=== PATIENT | female | born 1995 | race Hispanic/Latino ===

== ENCOUNTER 2021-01-05 12:18 | Emergency (ER) | payer OTHER, SELFPAY ==
[2021-01-05 12:56] VITALS: BP 128/73; PULSE 75; RESP 17; TEMP 36.7; O2SAT 100; BMI 28.3
--- NOTE | 2021-01-05 17:16 | ED_ITS ---
HPI - Wound/Laceration General Chief Complaint: Wound/Laceration Stated Complaint: cut on left arm, may need stitches Time Seen by Provider: 01/05/21 17:16 Source: patient Mode of arrival: Ambulatory Limitations: no limitations History of Present Illness HPI narrative: Patient had her Nexplanon removed earlier today. She states that the wound bled a little bit afterwards and seemed large she was unsure what to do so she came here. She states it did take some time for it to be removed. She denies any other medical issues. She does not have any other concerns. Related Data Home Medications Medication Instructions Recorded Confirmed No Known Home Medications 01/05/21 01/05/21 Allergies Allergy/AdvReac Type Severity Reaction Status Date / Time No Known Drug Allergies Allergy Verified 01/05/21 12:59 Review of Systems Review of Systems ROS Unobtainable: All systems reviewed & are unremarkable except as noted in HPI and below Patient History Social History Smoking Status: Never smoker Smoking Status: Never smoker alcohol intake frequency: a few times a month Substance Use Type: does not use Exam Narrative Exam Narrative: GENERAL: Alert and oriented x three, well-nourished female in mild distress. HEENT: Head normocephalic, atraumatic, EOMI, pupils reactive, face symmetric, moist mucous membranes NECK: Supple, full range of motion EXTREMITIES: Normal range of motion, no clubbing or edema. Neurovascularly intact. Patient's left upper extremity has incision in the upper arm that is clean, gapped but does not appear infected. Patient has full range of motion. Steri-Strip was applied patient has good closure. NEUROLOGICAL: Cranial nerves II through XII grossly intact. Moving all extremities SKIN: Warm, dry, no petechiae, no rashes or lesions. Initial Vital Signs Initial Vital Signs: Vital Signs Temperature 98.1 F 01/05/21 12:56 Pulse Rate 75 01/05/21 12:56 Respiratory Rate 17 01/05/21 12:56 Blood Pressure 128/73 01/05/21 12:56 Pulse Oximetry 100 01/05/21 12:56 Course Vital Signs Vital signs: Vital Signs - 8 hr 01/05/21 12:56 01/05/21 17:22 Temperature 98.1 F Pulse Rate 75 70 Respiratory Rate 17 16 Blood Pressure 128/73 117/78 Pulse Oximetry 100 99 Discharge Plan Departure Patient Disposition: Home Clinical Impression: Presence of surgical incision Activity Restrictions/Additional Instructions: Wound Care: Keep wound(s) clean and dry. Wash daily with soap and water only. Pat dry. You may trim the edges of the Steri-Strips if they start to peel. Do not use over the counter products (alcohol or peroxide)on the wounds unless instructed by a physician. If wound condition worsens (increased/expanding redness, developing fluid blisters, or worsening pain), either contact your doctor for an urgent re- assessment , or return to the Emergency Department. Return to the Emergency Department for any new or worsening symptoms. Prescriptions: No Action No Known Home Medications RF: 0
[2021-01-05 17:22] VITALS: BP 117/78; PULSE 70; RESP 16; O2SAT 99
== END 2021-01-05 17:22 | disposition home or self-care (01) ==
PROVIDERS: Emergency Provider Emergency Medicine
DX: T81.89XA Other complications of procedures, not elsewhere classified, initial encounter (principal)
CPT/HCPCS: 99281